=== PATIENT | male | born 1985 | race Caucasian/White ===

== ENCOUNTER → 2023-05-15 | Outpatient (CLI) | payer OTHER ==
--- NOTE | 2023-05-15 11:50 | CT ---
EXAMINATION TYPE: CT brain wo con DATE OF EXAM: 05/15/2023 COMPARISON: None HISTORY: 37-year-old male R51.9, headache TECHNIQUE: Examination was done in axial plane without intravenous contrast. Coronal and sagittal r econstructions performed. CT DLP: 1167.7 mGycm Automated exposure control for dose reduction was used. FINDINGS: There is no evidence of acute intracranial hemorrhage, acute ischemic changes, mass, mass-effect, or extra-axial fluid collection. There is no effacement of cerebral sulci or basal subarachnoid cister ns. There is no hydrocephalus. There is no midline shift. Diez-white matter distinction is preserv ed. Moderate mucosal thickening throughout the ethmoid air cells. Mastoid air cells well pneumatized. Orb its and globes are intact. IMPRESSION: No acute intracranial abnormality seen.
== END ==
LOC: RADCTMAIN 08:38
PROVIDERS: ATTEND Family Medicine
DX: R51.9 Headache, unspecified (principal)
CPT/HCPCS: 70450